=== PATIENT | female | born 1945 ===

== ENCOUNTER 2021-05-24 12:00 | Inpatient (IN) | payer OTHER ==
[~2021-05-24] VITALS: Ht 162.6 cm; Wt 78.0 kg
[2021-05-24] MEDS ORDERED: SYNTHROID137 MCG PO (15:59)
[2021-05-24] MEDS ORDERED: METFORMIN HCL1000 M2 PO (15:59)
[2021-05-24] MEDS ORDERED: ZOCOR40 MG PO (16:00)
[2021-05-24] MEDS ORDERED: TOPROL XL25 M1 PO (16:00)
[2021-05-24] MEDS ORDERED: AVAPRO75 MG PO (16:00)
[2021-05-24] MEDS ORDERED: SINGULAIR5 MG PO (16:01)
[2021-05-24] MEDS ORDERED: D3 + K2 DOTS 11 EACH PO (16:01)
[2021-05-29] MEDS ORDERED: ESCITALOPRAM OX10 MG (07:50)
[2021-05-29] MEDS ORDERED: COLESTID1 GM (07:50)
[2021-05-29] MEDS ORDERED: MONTELUKAST SOD10 MG (07:50)
== END 2021-06-01 15:28 | disposition home or self-care (01) | DRG 331 ==
LOC: SURG 05-29 05:35 → O/R 05-29 05:35 → SURH 05-29 06:15 → SURG 05-29 10:24 → SURH 05-29 12:00 → SURG 06-01 15:28
PROVIDERS: ADMIT Surgery; ATTEND Surgery
PROC: 07BB4ZZ Excision of Mesenteric Lymphatic, Percutaneous Endoscopic Approach (ICD-10-PCS; 2021-05-29)
PROC: 0DTF4ZZ Resection of Right Large Intestine, Percutaneous Endoscopic Approach (ICD-10-PCS; principal; 2021-05-29 06:15)
DX: D12.2 Benign neoplasm of ascending colon (principal); R59.0 Localized enlarged lymph nodes; K58.0 Irritable bowel syndrome with diarrhea

== ENCOUNTER 2021-05-28 09:10 | Day surgery (SDC) | payer OTHER ==
[~2021-05-28 09:10] MED LIST: AVAPRO75 MG PO; D3 + K2 DOTS 11 EACH PO; METFORMIN HCL1000 M2 PO; SINGULAIR5 MG PO; SYNTHROID137 MCG PO; TOPROL XL25 M1 PO; ZOCOR40 MG PO
[2021-05-29] MEDS ORDERED: MONTELUKAST SOD10 MG (07:50)
[2021-05-29] MEDS ORDERED: COLESTID1 GM (07:50)
[2021-05-29] MEDS ORDERED: ESCITALOPRAM OX10 MG (07:50)
== END 2021-05-28 13:10 | disposition home or self-care (01) ==
LOC: AMB-ENDOS 09:10
PROVIDERS: ATTEND Surgery
DX: D12.2 Benign neoplasm of ascending colon (principal); Z20.822 Contact with and (suspected) exposure to COVID-19